=== PATIENT | male | born 1950 | race Caucasian/White ===

== ENCOUNTER 2024-09-03 10:51 | Outpatient (CLI) | payer MEDICARE, SELFPAY | END 2024-09-03 10:52 | disposition home or self-care (01) | LOC: LAB 11:06 | PROVIDERS: Visit Provider Specialist | DX: C00.4 Malignant neoplasm of lower lip, inner aspect (principal) | CPT/HCPCS: 88307; 88331 ==

== ENCOUNTER 2025-06-16 10:00 | Oncology outpatient (recurring) (ONCR) | payer MEDICARE, SELFPAY | END 2025-06-21 23:59 | disposition home or self-care (01) | LOC: ONCMED 10:05 | PROVIDERS: Visit Provider Internal Medicine Medical Oncology | DX: C10.8 Malignant neoplasm of overlapping sites of oropharynx (principal); R59.0 Localized enlarged lymph nodes | CPT/HCPCS: 99205 ==

== ENCOUNTER 2025-07-22 07:45 | Oncology outpatient (recurring) (ONCR) | payer MEDICARE, SELFPAY ==
--- NOTE | 2025-06-29 10:30 | N.ONRAD NP_ITS ---
Radiation Oncology New Patient Visit Patient: John Marquis MR#: [id number] : 1950 Age: 75 Sex: Male Dictated by: Dr. Tita Mckeon Date of Service: 06/29/2025 Referring Physician(s) : Dr. 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 All other nodes negative(56). Radiotherapy to date: Summary > No prior radiation therapy. Chief Complaint / History of Present Illness: Pt first noticed a mass in lip about a year ago. He had surgery in Aug 2024 with re resected, clear margin. By Feb he had developed a submandibular node. The first FNA in March was negative, by Apr it was positive. PET showed the mass in the node. He had a Right neck dissection in 2024 with 57 nodes removed and only the submandibular node was positive with ELIECER. He is here today to discuss the role of radiation in his case. Current Medications: dexlansoprazole (Dexilant) 60 mg PO DAILY lisinopril 10 mg PO DAILY pantoprazole 40 mg PO DAILY sucralfate 1 g PO BID tadalafil (Cialis) 20 mg PO DAILY PRN Allergies: No Known Allergies Medical History: No history of collagen vascular disease. No previous radiation therapy. HTN, GERD Surgical History: as above Family History: Social History: Smoking and tobacco/nicotine status: never used tobacco/nicotine Current Complaints / Review of Systems: . Vital Signs: Performed on 06/29/2025 8:50 AM BMI - 29.941 kg/m2 (high), Height - 66 in, Weight - 185.5 lbs, Temperature - 97.8 f, Pulse - 56 /min (low), Respiration - 17 /min, O2 Sat - 97 %, Pain - 0, Fatigue - 0 and BP - 170/ 91 mm(hg)(high). Physical Exam: General: NC/AT, PERRL, EOMI, sclera clear. Lip is healed with moderate scar tissue. Neck incision is nicely healed. Pulm: respiratory rate is regular and non labored. 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 Psych: affect appropriate for current situation. Performance Status: 100 Pathology: Lab: Imaging: See HPI Impression: Recurrent evy failure in Pt with cancer of lip 6 months prior. Stage III Plan: I reviewed the history and pathology with Pt and his . We discussed the role of radiation in post op Pts. I reviewed the simulation and daily treatment of 6 weeks duration. He currently works out of town on Fridays so we discussed a 4 day a week treatment plan. I reviewed the risks and side effects both acute and longterm. He has agreed to proceed. He will undergo simulation today and begin his treatments shortly after. Signed by: 06/29/2025 10:28:35 AM <<Signature on File>> Time spent with patient:45 CPT Code: CPT Code:
--- NOTE | 2025-07-07 11:21 | ONCRAD TMN_ITS ---
Radiation Oncology Weekly Treatment Management Patient: Kandis Lopez> MR#: [id number] : 1950> Attending Physician: Titi Solomon Date of Service: 07/07/2025 Referring Physician(s) : Dr. Juan Diagnosis: C77.0 - Secondary and unspecified malignant neoplasm of lymph nodes of head, face and neck, Diagnosed 06/29/2025 (Active) C44.02 - Squamous cell carcinoma of skin of lip, Diagnosed 06/29/2025 (Active) Radiotherapy to date: Course: R submad. Node, Treatment Site: RSubmandNode, Ref. ID: [id number], Energy: 6X, Dose/Fx (cGy): 250, #Fx: , Dose Correction (cGy): 0, Total Dose Delivered (cGy): 250, Start Date: 07/07/2025, Elapsed Days: 0 Reason for visit: The patient is being seen today as part of their regularly scheduled weekly on treatment visits to assess for acute toxicities from radiotherapy. Review of Systems: Patient's first day on treatment of SCC of the right lower lip with positive lymph node. Patient noted rapid growth after biopsy originally. Vital Signs: Performed on 07/07/2025 10:32 AM BMI - 29.699 kg/m2 (high), Height - 66 in, Weight - 184 lbs, Temperature - 97 f, Pulse - 59 /min (low), Respiration - 18 /min, O2 Sat - 96 %, Pain - 0, Fatigue - 0 and BP - 163/ 89 mm(hg)(high/). Physical Exam: AAOx3. Skin intact. Diamond in place and pt advised to not shave during XRT Imaging: Radiation therapy imaging related to accurate target localization (i.e. KV, MV and CBCT) was reviewed. Appropriate changes, if any, were made to ensure treatment accuracy. Plan: Continue XRT Signed by: Titi Solomon 07/07/2025 11:20:06 AM
--- NOTE | 2025-07-14 08:43 | ONCRAD TMN_ITS ---
Radiation Oncology Weekly Treatment Management Patient: John Marquis MR#: [id number] : 1950 Attending Physician: Titi Solomon Date of Service: 07/14/2025 Referring Physician(s) : Dr. Manasa Juan Diagnosis: C77.0 - Secondary and unspecified malignant neoplasm of lymph nodes of head, face and neck, Diagnosed 06/29/2025 (Active) C44.02 - Squamous cell carcinoma of skin of lip, Diagnosed 06/29/2025 (Active) Radiotherapy to date: Course: R submad. Node, Treatment Site: RSubmandNode, Ref. ID: [id number], Energy: 6X, Dose/Fx (cGy): 250, #Fx: , Dose Correction (cGy): 0, Total Dose Delivered (cGy): 1,250, Start Date: 07/07/2025, Elapsed Days: 7 Reason for visit: The patient is being seen today as part of their regularly scheduled weekly on treatment visits to assess for acute toxicities from radiotherapy. Review of Systems: No voiced complaints. He did call Dr. Hernandes to renew his triamcinolone cream. Vital Signs: Performed on 07/14/2025 7:46 AM BMI - 29.343 kg/m2 (high), Height - 66 in, Weight - 181.8 lbs, Temperature - 97.2 f, Pulse - 69 /min, Respiration - 18 /min, O2 Sat - 96 %, Pain - 0, Fatigue - 0 and BP - 141/ 85 mm(hg)(high/). Physical Exam: AAOx3. Skin intact as well . Skin and jaquez intact. Imaging: Radiation therapy imaging related to accurate target localization (i.e. KV, MV and CBCT) was reviewed. Appropriate changes, if any, were made to ensure treatment accuracy. Plan: Continue XRT. Signed by: Titi Solomon 07/14/2025 8:41:45 AM
--- NOTE | 2025-07-21 08:58 | ONCRAD TMN_ITS ---
Radiation Oncology Weekly Treatment Management Patient: John Marquis MR#: [id number] : 1950 Attending Physician: Titi Solomon Date of Service: 07/21/2025 Referring Physician(s) : Dr. Manasa Juan Diagnosis: C77.0 - Secondary and unspecified malignant neoplasm of lymph nodes of head, face and neck, Diagnosed 06/29/2025 (Active) C44.02 - Squamous cell carcinoma of skin of lip, Diagnosed 06/29/2025 (Active) Radiotherapy to date: Course: R submad. Node, Treatment Site: RSubmandNode, Ref. ID: PTV, Energy: 6X, Dose/Fx (cGy): 250, #Fx: , Dose Correction (cGy): 0, Total Dose Delivered (cGy): 1,750, Start Date: 07/07/2025, End Date: 07/20/2025, Elapsed Days: 13 Reason for visit: The patient is being seen today as part of their regularly scheduled weekly on treatment visits to assess for acute toxicities from radiotherapy. Review of Systems: Patient gained 6 pounds since last week but he states he has a heavier COVID on now. He voices no complaints other than using triamcinolone cream on his lip liberally. Diamond is intact Vital Signs: Performed on 07/21/2025 8:24 AM BMI - 30.183 kg/m2 (high), Height - 66 in, Weight - 187 lbs, Temperature - 97.7 f, Pulse - 59 /min (low), Respiration - 17 /min, O2 Sat - 97 %, Pain - 0, Fatigue - 0 and BP - 187/ 83 mm(hg)(high/). Physical Exam: AAO x 3. Diamond is intact. Skin intact there is mild skin breakdown on the lip toward the left side. Imaging: Radiation therapy imaging related to accurate target localization (i.e. KV, MV and CBCT) was reviewed. Appropriate changes, if any, were made to ensure treatment accuracy. Plan: Continue XRT. Continue creams. Signed by: Titi Solomon 07/21/2025 8:57:46 AM
== END 2025-07-22 23:59 | disposition home or self-care (01) ==
PROVIDERS: Visit Provider Radiology Radiation Oncology
DX: Z51.0 Encounter for antineoplastic radiation therapy (principal); C44.02 Squamous cell carcinoma of skin of lip; C77.0 Secondary and unspecified malignant neoplasm of lymph nodes of head, face and neck
CPT/HCPCS: 77300; 77301; 77334; 77336; 77338; 77386; 99024; 99205; 99214